=== PATIENT | male | born 1990 | race Caucasian/White ===

== ENCOUNTER → 2021-09-23 | Outpatient (CLI) | payer SELFPAY ==
--- NOTE | 2021-09-23 07:44 | CT_ITS ---
STUDY: CT PELVIS WITHOUT CONTRAST REASON FOR EXAM: Male, 31 years old. llq pain -- ORAL CONTRAST ONLY, PUSHED TRUCK UP HILL 6 WEEKS AGO PAIN LLQ , NOW RESOLVING RADIATION DOSAGE (If Supplied By Facility): CTDIvol = ( 28.21 ) mGy, DLP = ( 1180.23 ) mGycm TECHNIQUE: Transaxial imaging of the pelvis was performed with oral contrast, and without intravenous administration of contrast material. Individualized dose optimization techniques were used for this CT. COMPARISON: None. FINDINGS: Normal urinary bladder. Central prostatic calcifications patient. Normal visualized small intestine. There are scattered colonic diverticula of the sigmoid colon consistent with chronic diverticulosis. There is no pelvic fluid. There is no pelvic mass lesion or lymphadenopathy. Normal visualized pelvic arteries. Small bilateral inguinal hernias containing fat more prominent on the left side. Normal osseous structures. CT/Pelvis without IV Contrast IMPRESSION: Small bilateral hernias containing fat more prominent on the left side. Scattered sigmoid diverticula. Electronically Signed: Osvaldo Suero MD at 14:46 EDT ,
== END | disposition home or self-care (01) ==
PROVIDERS: Referring Provider Surgery; Visit Provider Surgery
DX: R10.32 Left lower quadrant pain (principal)
CPT/HCPCS: 72192

== ENCOUNTER 2024-03-16 09:26 | Day surgery (SDC) | payer SELFPAY ==
[2024-03-16] VITALS (9 sets, daily range): BP systolic 124–149; BP diastolic 62–94; PULSE 73–91; RESP 14–20; TEMP 36.4–37; O2SAT 92–100; BMI 36.6
--- NOTE | 2024-03-16 09:31 | HP.PCM.SX_ITS ---
HPI - General General Date of Service: 03/16/24 HPI Narrative ELIS SON, is a 33 M who presents for robotic bilateral inguinal hernia pair with mesh. Patient states he still been having more pain on the left but does state that maybe the right is starting to protrude more. office visit 12/07/[facility] HPI: 33-year-old male presents due to bilateral groin pain. Patient was previously seen as CT abdomen pelvis showed bilateral inguinal hernias. Patient states he is beginning to have some right groin pain last couple months but does state it is worse on the left. Patient is interested in having it repaired at the beginning of the new year. [facility] Medical History (Updated 03/02/24 @ 08:53 by Chary Lott) Anxiety Back pain History of diverticulitis Chewing tobacco dependence Inguinal hernia Home Medications ?Medication ?Instructions ?Recorded ?Last Taken ?Type NK 03/02/24 Unknown History Allergy/AdvReac Type Severity Reaction Status Date / Time No Known Allergies Allergy Verified 03/16/24 10:00 Family History Father Heart disease Hypertension Surgical History S/P ACL reconstruction S/P nasal surgery S/P tonsillectomy Social History Smoking Status: Current every day smoker tobacco type: smokeless tobacco alcohol intake: never substance use type: does not use Vital Signs Vital Signs Vital Signs: Weight Weight: 257 lb Physical Exam Const alert, oriented x3 and no apparent distress HEENT normocephalic and head/scalp atraumatic Resp normal respiratory effort Cardio regular rate GI soft to palpation and non-tender; Negative for non-distended Palpation: Negative for guarding Extremity no clubbing, cyanosis or edema Skin no rashes or lesions noted Neuro CN's II-XII intact bilaterally Psych mental status grossly normal Assessment & Plan Assessment/Plan (1) Bilateral inguinal hernia without obstruction or gangrene: PLAN: Plan Plan to do robotic bilateral inguinal hernia repair with mesh. Reviewed the procedure with the patient including the risks, including but not limited to infection, bleeding, paresthesia, chronic pain, injury to small bowel or contents of the spermatic cord, and recurrence. Patient no further questions this time. Shonna Robotham, M.D. Pager: [phone] [facility] [address] [place] [address], [facility], [address] [place] [address] Office: [phone]
[2024-03-16] MEDS: 0.9% Normal Saline (1000mL) 1,000 ML 15 ML IV (10:13)
--- NOTE | 2024-03-16 11:16 | PRE.ANES_ITS ---
ASA Classification* ASA Classification ASA Classification: 2 Assessment & Plan Anesthesia* Anesthesia Assessment Anesthesia Assessment: Discussed sedation and/or anesthesia options, risks, benefits, and alternatives with patient/parents/legal guardian/POA. Questions invited. The patient/parents/legal guardian/POA seems to understand and agrees to proceed with anesthesia plan. Reviewed the physical assessment, medical history, allergy history and patient home medications list prior to surgery/procedure/anesthetic and documented any changes. Performed airway and anesthesia risk assessments. Anesthesia Type Anesthesia Type: General History Source History Obtained from:: Patient and Chart Anesthesia Focused Assessment* Temperature: 98.6 F Pulse Rate: 91 Blood Pressure: 149/94 Respiratory Rate: 14 Pulse Ox: 100 Oxygen Delivery Method: Room Air Airway Assessment Mouth opens: >3 cm Mallampati Score: II Teeth Condition: Missing (Patient has a couple missing teeth lower jaw) Neck Range of motion (ROM): Full ROM Focused Labs Anesthesia Preop lab: CBC CHEMISTRY COAG Pre-Assessment Diagnosis/Proposed Procedure Planned Operative Procedure(s): (B) Lap Robotic Inguinal Hernia w/mesh Anesthesia History Anesthesia History - clinical nursing instructor: Anesthesia History - clinical nursing instructor Hx Hospitalization No 03/02/24 08:53 Any Problems With Anesthesia No 03/02/24 08:53 Cholinesterase deficiency No 03/02/24 08:53 You/Your Family Experience No 03/02/24 08:53 fever (hyperthermia) with Relationship Recent Exposure to Contagious No 03/16/24 10:00 Disease Does patient have nerve No 03/02/24 08:53 stimulator Patient instructed to have device shut off --Does patient have Pacemaker No 03/16/24 10:00 or ICD? When Was Last Pacemaker Check QUESTION #4 FULL TEXT: You/Your Family Experience fever (hyperthermia) with Anesthesia Last Oral Intake Last Oral intake: Last Oral Intake NPO since 22:00 03/16/24 10:00 Meds taken in AM with sips of No 03/16/24 10:00 water? Meds patient instructed to take am of surgery PONV PONV - clinical nursing instructor: PONV - clinical nursing instructor Female No 03/02/24 08:53 HX of Motion Sickness Yes 03/02/24 08:53 HX of N/V After Surgery No 03/02/24 08:53 Non-Smoker No 03/02/24 08:53 Duration of Surgery greater Yes 03/02/24 08:53 than 60 minutes Number of Risk Factors 2 03/02/24 08:53 PONV Score Moderate Risk 03/02/24 08:53 Height & Weight Height & Weight: Anesthesia: Height & Weight Height 5 ft 11 in 03/16/24 10:00 Weight: 119.2 kg 03/16/24 10:00 Body Mass Index (BMI) 36.6 03/16/24 10:00 Respiratory Assessment Respiratory Assessment - clinical nursing instructor: Respiratory Tract Infection Hx - clinical nursing instructor Hx Respiratory Tract Infection No 03/02/24 08:53 STOP Sleep Apnea STOP Sleep Apnea - clinical nursing instructor: STOP Sleep Apnea - clinical nursing instructor Hx Hypertension No 03/02/24 08:53 Hx Sleep Apnea No 03/02/24 08:53 CPAP BIPAP Do you snore loudly (louder No 03/02/24 08:53 than talking or can be heard Do you often feel tired/ No 03/02/24 08:53 fatigued/ sleepy during daytime? Has anyone observed you stop No 03/02/24 08:53 breathing during sleep? STOP Results Negative 03/02/24 08:53 QUESTION #5 FULL TEXT : Do you snore loudly (louder than talking or can be heard through closed doors)? 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 Specify any problems Hx of Preganancy in last 3 N/A 03/02/24 08:53 Months Nurse Filling Out Transfusion VCHRISTIN 03/02/24 08:53 & Questions: Date: 03/02/24 03/02/24 08:53 Time: 08:54 03/02/24 08:53 Patient unable to answer at this time (ie. confused, unrespo /Reproduction History /Reproductive History - clinical nursing instructor: /Reproductive Hx- clinical nursing instructor Hx Now Gestational Age (in weeks): EDC: Hx Hx Para Hx Section SAB Active Medications Active Medications: Current Medications Generic Name Dose Route Start Last Admin Trade Name Freq PRN Reason Stop Dose Admin Cefazolin Sodium 3 gm/ N/A 30 mls @ 600 mls/hr 03/16/24 11:30 IV 03/16/24 11:32 PREOP ONE Sodium Chloride 1,000 mls @ 15 mls/hr 03/16/24 09:50 03/16/24 10:13 IV 03/21/24 23:09 15 mls/hr .Q48H NINI Administration Protocol [facility] Medical History Anxiety Back pain History of diverticulitis Chewing tobacco dependence Inguinal hernia Home Medications ?Medication ?Instructions ?Recorded ?Last Taken ?Type NK 03/02/24 Unknown History Allergy/AdvReac Type Severity Reaction Status Date / Time No Known Allergies Allergy Verified 03/16/24 10:00 Family History Father Heart disease Hypertension Surgical History S/P ACL reconstruction S/P nasal surgery S/P tonsillectomy Social History Smoking Status: Current every day smoker (Patient did not smoke today.) tobacco type: smokeless tobacco alcohol intake: never substance use type: does not use Review of Systems (Anesthesia) ROS Narrative System reviewed and no additional complaints, except as documented.
--- NOTE | 2024-03-16 11:30 | HERN_PTH ---
PATIENT: ELIS SON III LOC: [facility] [place][id number] AGE/SX: 33/M ROOM: RE03/16/[address]: Dr. Shonna Guevara MD : 1990 BED: DIS: 03/16/2024 SPEC #: [id number] RECD: 03/16/24 17:08 STATUS: CHELLE ROBERTO #: [id number] TAO: 03/16/24 11:[address]: Shonna Guevara DEPT: SURGICAL PATHOLOGY RECD BY: Brynn Sarabia ENTERED: 03/19/24 10:39 SP TYPE: Hernia OTHR DR: No Primary Care Phys Tissues: HERNIA Procedures: Surgery Specimen Level II HEADER OPERATION: Laparoscopic robotic bilateral inguinal hernia with mesh PRE-OP DIAGNOSIS: Bilateral inguinal hernia without obstruction or gangrene TISSUE SUBMITTED: Cord lipoma, right MICROSCOPIC DIAGNOSIS Right cord lipoma: Tissue from hernia repair. 03/20/2024 MICROSCOPIC DESCRIPTION Slides are reviewed. GROSS DESCRIPTION Received in fixative is one container labeled with the patient's name and designated Right cord lipoma. The specimen consists of an ovoid piece of yellow adipose tissue measuring 4 x 2 x 1cm. Sections reveal yellow adipose cut surfaces without area of hemorrhage, necrosis or cystic degeneration. Home Care Coordinator sections are submitted in two cassettes. 03/19/2024 TC:5 CPT:01151
[2024-03-16] MEDS: Cefazolin 3 GM in Syringe 1 EACH IV (12:54)
[2024-03-16] MEDS: Bupivacaine Mpf 0.5% 30 ML VIAL (13:20)
--- NOTE | 2024-03-16 15:31 | PCM.OPRPT ---
Operative Report (Standard) Operative Information Date of Procedure: 03/16/24 Pre-Operative Diagnosis: Bilateral inguinal hernias Post-Operative Diagnosis: Bilateral cord lipomas, indirect hernias Surgery/Procedure Performed: Robotic bilateral hernia repair with mesh car rental service attendant: Yes Healthcare Administration Internship: Vandana Powell Tasks completed by airplane first officer: Opening & closing Type of Anesthesia: General/Supplemental RN Documented Start/Stop Times: Operation Date: 03/16/24 11:30 Case Time Into Pre-Op 03/16/24 09:46 Anesthesia Start 03/16/24 12:54 Into Room 03/16/24 12:54 Procedure Start 03/16/24 13:20 Procedure End 03/16/24 15:39 Anesthesia End 03/16/24 15:48 Out of Room 03/16/24 15:48 Into Recovery 03/16/24 15:52 Procedure Start Time: 13:20 Procedure Stop Time: 15:39 Select all DRAINS/GRAFTS/IMPLANTS that apply: Prosthetic device Prosthetic device details: left large 3dmax mid LOT [id number], ref [id number];right large 3dmax mid lot [id number] ref [id number] Special Medications: Ancef 3 g IV x 1 Estimated Blood Loss: <10 cc Specimen collected: Yes Description of specimen(s) removed: Right cord lipoma Description of surgery: Indications: 33-year-old male presented with bilateral symptomatic inguinal hernias. Robotic bilateral inguinal hernia repairs with mesh were elected elected patient was agreeable. Description of procedure: Patient was brought to operating room placed supine operative table. Timeout was completed verifying correct patient, procedure, site, positioning, special, prior to beginning procedure. General anesthesia was induced. Patient's arms were tucked and padded appropriately. Visiport was used to make the incision at Romero's point in the left upper quadrant. Entry into the abdomen was confirmed visually. Laparoscope was placed. Verifying no injury during initial trocar placement. Patient was placed in Trendelenburg position. Two 8 mm trochars were placed along the horizontal line in the midline and in the right upper quadrant. Marcaine 0.5% 22 cc was used throughout the case. The initial 5 mm trocar was upsized to an 8 mm well under direct visualization. Robot was docked and laparoscope replaced. Both the inguinal regions were inspected no obvious hernias were seen. There was some adhesions of the sigmoid colon to the left lower abdominal wall/peritoneum which were taken down with scissors. Both procedures done similarly. The median umbilical ligament was divided sharply with electrocautery. Peritoneum was incised with the endoscopic scissors along a line 2 cm above the superior edge of the hernia defect extending from the median umbilical ligament to anterior superior iliac spine. Peritoneal flap was mobilized inferiorly using blunt and sharp/cautery dissection. The inferior epigastric vessels were exposed and symphysis pubis and identified. The cord lipomas were found along indirect inguinal hernias and removed with traction. Cord structures were visualized and protected. A large size Bard 3D max mid mesh left and right were used. The mesh was rolled longitudinally into a compact cylinder and passed through the trocar. The cylinder was placed along the inferior aspect of the working space and unrolled into place to completely cover the direct, indirect and femoral spaces. The mesh was secured in place medially to Og's ligament using the 3-0 Vicryl suture. Care was taken to avoid the inferolateral triangle containing iliac vessels and genital nerves. The peritoneal flap was closed over mesh and secured with 3-0 V-Loc suture. Right cord lipoma was removed and sent to pathology. Holes in the peritoneal flap was sutured with 3-0 Vicryl on the left. After ensuring adequate hemostasis, the trochars were removed and pneumoperitoneum allowed to escape. The skin was closed with 4-0 Monocryl interrupted sutures and Steri-Strips. Patient's testicles are also confirmed in the scrotum bilaterally. Patient tolerated procedure well was taken to the postanesthesia care unit in stable condition. Surgical Findings: Left and right cord lipomas indirect space. Complications Complications: No
--- NOTE | 2024-03-16 15:43 | DCINST_ITS ---
Discharge Instructions Procedure Hernia Diet Discharge Diet: Light diet - advance as tolerated Activity Discharge Activity: Return to Normal Activity, May Not Drive (for 2-3 days or while taking narcotic pain meds.) and May Shower (with the bandage in place 1 day after surgery.) Lifting Restrictions: 20 pounds for 2 weeks, then 40 lbs for another 2 week Additional Activity Instructions:: Climbing stairs is fine, walking is encouraged. Sitting in bed may be uncomfortable. Sitting up using your lateral muscles (sitting up sideways) is usually more comfortable. Do not drive, work heavy equipment of sign legal documents for 24 hours. You may have scrotal swelling, an ice pack and/or athletic support can provide more comfort. Recommend scrotal support-- jockstrap or boxer briefs but not just boxers. Pain medications may cause nausea, you should typically eat light foods as you take your pain medications. Pain medications may also cause constipation. If you have difficulty with this, discuss with your doctor. Dressing / Incision Call your doctor if your incision/area has: Continuous Slow Oozing, Sudden Increased Bleeding, Increased Pain/ Swelling, Increased Redness and Foul Smelling Discharge Call your doctor if you observe: Fever of 101 or Higher Suture Line Care: Avoid Pulling/Pushing and Avoid Pinching/Bending Change Dressing in: 3 days (Leave steri-strips in place for 1 week. May protect with a guaze bandaid.) Additional Dressing/Incision Instructions:: Leave the operative bandage on for 2-3 days. When you remove the bandage, leave the steri-strips on place unless they do not follow-up by 10 days then okay to remove Follow Up Care Please Follow Up With: Shonna Guevara MD When: Please call [phone] for a follow up appointment in 2 weeks Test Results: Test results from this visit will be discussed in further detail at your follow- up appointment, if applicable. Discharge Plan Admission Attending Provider: Shonna Guevara Primary Care Provider: Care Physician,No Primary Instructions Print Language: Bulgarian Discharge Orders/Prescriptions Prescriptions: No Action NK Referrals / Follow Up: Care Physician,No Primary [Primary Care Provider] - Disposition Disposition (needs filled in before D/C Order can be placed): Home, Self Care
--- NOTE | 2024-03-16 15:56 | PCM.POST.ANE ---
Anesthesia: Postop Eval I Current Vital Signs Temperature: 98.4 F Pulse Rate: 77 Blood Pressure: 128/62 Respiratory Rate: 20 Pulse Ox: 98 Oxygen Delivery Method: Room Air Assessment Airway patent: Yes Spontaneous unlabored respirations: Yes Mental status: Awake nausea: No Vomiting: No Anesthesia Complication: No Fluid Hydration Crystalloid volume administer (ml): 1,500 Total IV fluid infused: 1,500 Progress Note Anesthesia document: Postop Eval 1 completed: Yes
[2024-03-16] MEDS: Acetaminophen 500 MG Tablet 1000 MG PO (17:25)
--- NOTE | 2024-03-16 19:41 | POSTOPAN2_ITS ---
Anesthesia Postop Eval I Sum Postop Eval Completion status Anesthesia document: Postop Eval 1 completed: Yes Anesthesia Postop Eval I Summary Anesthesia Postop Eval I Summary: Anesthesia Postop Eval I: Assessment Summary Airway patent Yes 03/16/24 15:58 PANTS [email or web address] Spontaneous unlabored Yes 03/16/24 15:58 PANTS [email or web address] respirations Mental status Awake 03/16/24 15:58 PANTS [email or web address] nausea No 03/16/24 15:58 PANTS [email or web address].[email or web address] Vomiting No 03/16/24 15:58 PANTS [email or web address] Anesthesia Postop Eval I: Fluid Summary Crystalloid volume administer 1,500 03/16/24 15:58 PANTS [email or web address] (ml) Colloids volume administered ( ml) Blood Product volume administered (ml) Total IV fluid infused 1,500 03/16/24 15:58 PANTS [email or web address] Anesthesia Postop Eval I: Summary Notes Anesthesia Complication No 03/16/24 15:58 PANTS [email or web address] Anesthesia Complication Comment: Post-operative progress note Anesthesia: Postop Eval II Evaluation Mental status: Awake and Calm Pain Level: 1 nausea: No Vomiting: No Complications Anesthesia Complication: No
--- NOTE | 2024-03-16 19:41 | PCM.POSTANE2 ---
Anesthesia Postop Eval I Sum Postop Eval Completion status Anesthesia document: Postop Eval 1 completed: Yes Anesthesia Postop Eval I Summary Anesthesia Postop Eval I Summary: Anesthesia Postop Eval I: Assessment Summary Airway patent Yes 03/16/24 15:58 MEDICATION RECONCILIATION [email or web address] Spontaneous unlabored Yes 03/16/24 15:58 MEDICATION RECONCILIATION TECHNICIAN.[email or web address] respirations Mental status Awake 03/16/24 15:58 MEDICATION RECONCILIATION TECHNICIAN.[email or web address] nausea No 03/16/24 15:58 MEDICATION RECONCILIATION TECHNICIAN.[email or web address] Vomiting No 03/16/24 15:58 MEDICATION RECONCILIATION TECHNICIAN.[email or web address] Anesthesia Postop Eval I: Fluid Summary Crystalloid volume administer 1,500 03/16/24 15:58 MEDICATION RECONCILIATION TECHNICIAN.JSWI (ml) Colloids volume administered ( ml) Blood Product volume administered (ml) Total IV fluid infused 1,500 03/16/24 15:58 MEDICATION RECONCILIATION TECHNICIAN.[email or web address] Anesthesia Postop Eval I: Summary Notes Anesthesia Complication No 03/16/24 15:58 MEDICATION RECONCILIATION TECHNICIAN.[email or web address] Anesthesia Complication Comment: Post-operative progress note Anesthesia: Postop Eval II Evaluation Mental status: Awake and Calm Pain Level: 1 nausea: No Vomiting: No Complications Anesthesia Complication: No
== END 2024-03-16 17:38 | disposition home or self-care (01) ==
LOC: SDC 09:27 → AC 09:29
PROVIDERS: Referring Provider Surgery; Visit Provider Surgery
PROC: (CPT 49650; principal; 2024-03-16 11:10)
DX: K40.20 Bilateral inguinal hernia, without obstruction or gangrene, not specified as recurrent (principal); Z87.19 Personal history of other diseases of the digestive system; F17.220 Nicotine dependence, chewing tobacco, uncomplicated
CPT/HCPCS: 49650; S2900; 55520; 00840; 88302; J2405